=== PATIENT | male | born 1970 | race Caucasian/White ===

== ENCOUNTER 2022-10-25 08:27 | Day surgery (SDC) | payer BC ==
[~2022-10-25 08:27] MED LIST: Lactated Ringers 1,000 ML IV SCH; Lidocaine 1% 5 ML VIAL ONE; Lidocaine 1%/Sod Bicarbonate in NS 8.4% 1 ML Syringe IDERM PRN; Midazolam 1 MG/ML 2 ML SDV ONE; Ondansetron 4 MG/2 ML SDV IVPUSH PRN; Propofol 200 MG/20 ML SDV ONE; Sodium Chloride 0.9% 10 ML Syringe FLUSH PRN; Sodium Chloride 0.9% 10 ML Syringe FLUSH SCH; fentaNYL 100 MCG/2 ML SDV ONE
[2022-10-25] MEDS ORDERED: Dexmedetomidine 200 MCG/2 ML SDV ONE (08:29)
[2022-10-25] MEDS ORDERED: Bupivacaine 0.25%/EPINEPHrine 1:200,000 30 ML SDV ONE (08:32)
[2022-10-25] MEDS ORDERED: Propofol 200 MG/20 ML SDV ONE (09:22)
[2022-10-25] MEDS ORDERED: ceFAZolin 2 GM Vial ONE (09:29)
[2022-10-25] MEDS ORDERED: diphenhydrAMINE 50 MG/ML SDV ONE (09:32)
[2022-10-25] MEDS ORDERED: Dexamethasone 4 MG/ML 5 ML MDV ONE (09:32)
[2022-10-25] MEDS ORDERED: Ondansetron 4 MG/2 ML SDV ONE (09:32)
[2022-10-25] MEDS ORDERED: Ketamine 500 mg/10 ML MDV ONE (09:55)
[2022-10-25] MEDS ORDERED: Ondansetron 4 MG/2 ML SDV IVPUSH PRN (10:15)
[2022-10-25] MEDS ORDERED: diphenhydrAMINE 50 MG/ML SDV IVPUSH PRN (10:16)
[2022-10-25] MEDS: Vancomycin 1 GM SDV ONE ×2 (10:21→10:51)
[2022-10-25] MEDS: Tranexamic Acid 1,000 MG/10 ML Vial ONE ×2 (10:21→10:51)
[2022-10-25] MEDS: Morphine 8 MG, EPINEPHrine 0.3 MG, Cefuroxime 750 MG, Ketorolac 30 MG, Sodium Chloride ... PRN ×10 (10:22→10:46)
[2022-10-25] MEDS ORDERED: Ketorolac 30 MG/ML SDV ONE (10:36)
[2022-10-25] MEDS ORDERED: Lactated Ringers 1,000 ML ONE (10:42)
[2022-10-25] MEDS ORDERED: HYDROmorphone 0.5 MG/0.5 ML Syringe ONE (10:44)
[2022-10-25] MEDS ORDERED: fentaNYL 100 MCG/2 ML SDV ONE (11:01)
[2022-10-25] MEDS: HYDROmorphone 0.5 MG/0.5 ML Syringe IVPUSH PRN ×2 (11:31→11:52)
[2022-10-25] MEDS: fentaNYL 100 MCG/2 ML SDV IVPUSH PRN ×2 (11:33→11:54)
[2022-10-25] MEDS ORDERED: Acetaminophen/HYDROcodone 325-5 MG Tab PO SCH (13:24)
[2022-10-25] MEDS ORDERED: diphenhydrAMINE 25 MG Cap PO SCH (13:47)
== END 2022-10-25 14:52 | disposition home or self-care (01) ==
LOC: JD.SDS 08:27
PROVIDERS: ATTEND Orthopaedic Surgery
DX: M17.12 Unilateral primary osteoarthritis, left knee (principal); Z98.890 Other specified postprocedural states; Z79.899 Other long term (current) drug therapy; Z88.6 Allergy status to analgesic agent; Z88.5 Allergy status to narcotic agent; Z79.82 Long term (current) use of aspirin
CPT/HCPCS: 0055T; 27447; 73560; 97161; A9270; C1713; C1776; J0171; J0690; J0697; J1100; J1170; J1200; J1885; J2250; J2270; J2405; J2704; J3010; J3370; J3490; J7120; 01402; 64450; 76942